=== PATIENT | male | born 1955 | race Caucasian/White ===

== ENCOUNTER 2017-07-25 16:07 | Emergency (ER) | payer OTHER ==
[2017-07-25 16:10] VITALS: BP 149/74; PULSE 79; RESP 22; TEMP 97.8; O2SAT 100
[2017-07-25 16:44] VITALS: BP 132/79; PULSE 68; RESP 16; O2SAT 96
--- NOTE | 2017-07-25 16:59 | PD ---
HPI Chief Complaint: Edema Time Seen by Provider: 16:41 Travel History International Travel<30 days: No Contact w/Intl Traveler<30days: No Traveled to known affect area: No History of Present Illness HPI 62-year-old male presents to the emergency department for evaluation of bilateral lower extremity edema that has been intermittent over the past 2 weeks. On , he states his edema was much worse and he called his primary care physician who told him to go to the ER. However, the edema had resolved so he did not come. Patient states that the edema is usually worse on the right. At this time, the edema is resolved. He does report shortness of breath, worse with exertion. He denies any chest pain at this time. No fevers or chills. He states he will occasionally get abdominal pain, but has not at this time. Patient reports history of chronic back pain, bipolar disorder. No exacerbating or alleviating factors. Moderate severity. PFSH Past Medical History Cardiovascular Problems: Yes Social History Alcohol Use: Yes (Rarely) Tobacco Use: Yes Substance Use: No Allergies-Medications (Allergen,Severity, Reaction): Coded Allergies: No Known Drug Allergies (Verified Allergy, Unknown, 07/25/17) Reported Meds & Prescriptions Reported Meds & Active Scripts Active Reported Testosterone Cypionate Inj (Testosterone Cypionate) 200 Mg/Ml Inj 200 Mg IM Q14D Motrin Ib (Ibuprofen) 200 Mg Tablet 800 Mg PO BID Valium (Diazepam) 5 Mg Tab 5 Mg PO BID PRN Valium (Diazepam) 10 Mg Tab 10 Mg PO HS PRN Duloxetine DR (Duloxetine HCl) 60 Mg Capdr 60 Mg PO DAILY Hydrochlorothiazide 25 Mg Tab 25 Mg PO DAILY Lisinopril 10 Mg Tab 10 Mg PO BID Suboxone Sublingual Film (Buprenorphine-Naloxone Sublingual Film) 8-2 Mg Film 1 Film SL TID Unique ID number required: Review of Systems Except as stated in HPI: all other systems reviewed are Neg Physical Exam Narrative GENERAL: Well-nourished, well-developed male patient, afebrile. SKIN: Focused skin assessment warm/dry. HEAD: Normocephalic. Atraumatic. EYES: No scleral icterus. No injection or drainage. NECK: Supple, trachea midline. No JVD or lymphadenopathy. CARDIOVASCULAR: Regular rate and rhythm without murmurs, gallops, or rubs. Right pedal pulse 2+. Left pedal pulses 1+. RESPIRATORY: Breath sounds equal bilaterally. No accessory muscle use. Lung sounds are clear to auscultation. GASTROINTESTINAL: Abdomen soft, non-tender, nondistended. No abdominal pain to palpation. No guarding. MUSCULOSKELETAL: No cyanosis, or edema. No calf tenderness to palpation. Negative Homans sign bilaterally. BACK: Nontender without obvious deformity. No CVA tenderness. Data Data Last Documented VS Vital Signs Date Time Temp Pulse Resp B/P (MAP) Pulse Ox O2 Delivery O2 Flow Rate FiO2 07/25/17 20:23 62 16 125/76 (92) 96 Nasal Cannula 2.00 07/25/17 16:10 97.8 Orders Orders Electrocardiogram (07/25/17 16:53) B-Type Natriuretic Peptide (07/25/17 16:53) Ckmb (Isoenzyme) Profile (07/25/17 16:53) Complete Blood Count With Diff (07/25/17 16:53) Magnesium (Mg) (07/25/17 16:53) Troponin I (07/25/17 16:53) Chest, Single Ap (07/25/17 16:53) Ecg Monitoring (07/25/17 16:53) Bilateral Bp Monitoring (07/25/17 16:53) Iv Access Insert/Monitor (07/25/17 16:53) Oximetry (07/25/17 16:53) Oxygen Administration (07/25/17 16:53) Sodium Chloride 0.9% Flush (Ns Flush) (07/25/17 17:00) Comprehensive Metabolic Panel (07/25/17 16:54) Lipase (07/25/17 16:54) Us Leg Venous Doppler Bilat (07/25/17 ) Labs Laboratory Tests Test 07/25/17 17:36 White Blood Count 6.6 TH/MM3 Red Blood Count 5.03 MIL/MM3 Hemoglobin 15.1 GM/DL Hematocrit 44.7 % Mean Corpuscular Volume 88.9 FL Mean Corpuscular Hemoglobin 30.0 PG Mean Corpuscular Hemoglobin Concent 33.8 % Red Cell Distribution Width 13.6 % Platelet Count 249 TH/MM3 Mean Platelet Volume 7.8 FL Neutrophils (%) (Auto) 44.6 % Lymphocytes (%) (Auto) 42.0 % Monocytes (%) (Auto) 9.8 % Eosinophils (%) (Auto) 2.5 % Basophils (%) (Auto) 1.1 % Neutrophils # (Auto) 2.9 TH/MM3 Lymphocytes # (Auto) 2.8 TH/MM3 Monocytes # (Auto) 0.6 TH/MM3 Eosinophils # (Auto) 0.2 TH/MM3 Basophils # (Auto) 0.1 TH/MM3 CBC Comment DIFF FINAL Differential Comment Blood Urea Nitrogen 14 MG/DL Creatinine 1.25 MG/DL Random Glucose 89 MG/DL Total Protein 6.7 GM/DL Albumin 3.5 GM/DL Calcium Level 8.6 MG/DL Alkaline Phosphatase 49 U/L Aspartate Amino Transf (AST/SGOT) 18 U/L Alanine Aminotransferase (ALT/SGPT) 15 U/L Total Bilirubin 0.7 MG/DL Sodium Level 136 MEQ/L Potassium Level 3.4 MEQ/L Chloride Level 98 MEQ/L Carbon Dioxide Level 30.1 MEQ/L Anion Gap 8 MEQ/L Estimat Glomerular Filtration Rate 59 ML/MIN Magnesium Level 2.2 MG/DL Total Creatine Kinase 61 U/L Troponin I LESS THAN 0.02 NG/ML B-Type Natriuretic Peptide 19 PG/ML Lipase 91 U/L [facility] Medical Decision Making Medical Screen Exam Complete: Yes Emergency Medical Condition: Yes Medical Record Reviewed: Yes Interpretation(s) Last Impressions Chest X-Ray 07/25/17 1653 Signed Impressions: Service Date/Time: Tuesday, July 25, 2017 17:17 - CONCLUSION: Compensated cardiomegaly otherwise negative Ned Law MD FACR Lower Extremity Ultrasound 07/25/17 0000 Signed Impressions: Service Date/Time: Tuesday, July 25, 2017 19:07 - CONCLUSION: Normal examination. Harley Pederson MD Differential Diagnosis Idiopathic edema versus CHF versus ACS versus electrolyte abnormality versus pneumonia versus URI Narrative Course 62-year-old male presents to the emergency department for evaluation of bilateral lower extremity edema and shortness of breath. There is no edema on exam. Negative Homans sign and no tenderness to bilateral calves. Lung sounds are clear to auscultation. EKG, CBC, CMP, lipase, CK, troponin, magnesium, chest x-ray, venous Doppler ultrasound of bilateral lower extremity are ordered and pending. EKG shows sinus rhythm, heart rate 63, no acute ST changes. CBC shows no acute abnormality. CMP shows no acute abnormality. Lipase is 91. CK is 61. Troponin is is less than 0.02. Magnesium is 2.2. Chest x-ray shows compensated cardiomegaly otherwise negative venous ultrasound is negative. On reexamination, patient states he is feeling good and would like to go home. I discussed results with the patient, his and daughter at bedside. Patient is instructed to follow-up with his primary care physician he is return for any acute worsening of symptoms. The patient was discharged in stable condition with instructions, including return instructions and follow up instructions. Diagnosis Primary Impression: Edema of both legs Referrals: Primary Care Physician call for appointment Patient Instructions: General Instructions, Leg Edema (ED) Additional Instructions: Elevate. Compression stockings. Follow-up with a primary care physician. Return to the emergency department for any acute worsening of symptoms. Med/Other Pt SpecificInfo: No Change to Meds Disposition: 01 DISCHARGE HOME Condition: Stable Kailey Silva July 25, 2017 16:58
[2017-07-25] MEDS ORDERED: SODIUM CHLORIDE 0.9% FLUSH 10 ML FLUSH IVF PRN (17:00)
[2017-07-25] MEDS ORDERED: DULO1CAP3 PO (17:17)
[2017-07-25] MEDS ORDERED: DIAZ5 PO (17:17)
[2017-07-25] MEDS ORDERED: IBUP-1129 PO (17:17)
[2017-07-25] MEDS ORDERED: SUBO8MIS SL (17:17)
[2017-07-25] MEDS ORDERED: HYDR25TA5 PO (17:17)
[2017-07-25] MEDS ORDERED: LISI10TA3 PO (17:17)
[2017-07-25] MEDS ORDERED: DIAZ10 PO (17:17)
[2017-07-25] MEDS ORDERED: TEST200I12 IM (17:39)
--- NOTE | 2017-07-25 17:49 | RADRPT ---
EXAM DATE/TIME: 07/25/2017 17:17 [facility] COMPARISON: No previous studies available for comparison. INDICATIONS : Short of breath. MEDICAL HISTORY : None. SURGICAL HISTORY : None. ENCOUNTER: Initial ACUITY: 1 day PAIN SCORE: 0/10 LOCATION: Bilateral chest FINDINGS: The lungs are clear. The heart is minimally enlarged. The pulmonary vascularity is normal. There is n o evidence for infiltrate or failure. The portion of the bony skeleton visualized is unremarkable. CONCLUSION: Compensated cardiomegaly otherwise negative Ned Law MD FACR on July 25, 2017 at 17:46 Board Certified Radiologist. This report was verified electronically.
[2017-07-25 17:51] VITALS: BP 128/78; PULSE 65; RESP 18; O2SAT 95
[2017-07-25 18:10] VITALS: O2SAT 96
[2017-07-25 18:32] LABS: AUTOMATED NEUTROPHIL # 2.9 TH/MM3 (1.8-7.7); BASOPHIL # 0.1 TH/MM3 (0-0.2); BASOPHIL % 1.1 % (0.0-2.0); EOSINOPHIL # 0.2 TH/MM3 (0-0.4); EOSINOPHIL % 2.5 % (0.0-4.0); HEMATOCRIT 44.7 % (39.0-51.0); HEMOGLOBIN 15.1 GM/DL (13.0-17.0); LYMPHOCYTE # 2.8 TH/MM3 (1.0-4.8); MEAN CELL VOLUME 88.9 FL (80.0-100.0); MEAN CORPUSCULAR HGB CONC 33.8 % (32.0-36.0); MEAN PLATELET VOLUME 7.8 FL (7.0-11.0); MONO % 9.8 % (0.0-8.0); MONOCYTE # 0.6 TH/MM3 (0-0.9); NEUT % 44.6 % (16.0-70.0); PLATELET COUNT 249 TH/MM3 (150-450); RED BLOOD COUNT 5.03 MIL/MM3 (4.50-5.90); RED CELL DISTRIBUTION WIDTH 13.6 % (11.6-17.2); WHITE BLOOD COUNT 6.6 TH/MM3 (4.0-11.0)
[2017-07-25 19:04] LABS: MAGNESIUM 2.2 MG/DL (1.5-2.5); TROPONIN I LESS THAN 0.02 NG/ML (0.02-0.05)
[2017-07-25 19:13] VITALS: BP 125/77; PULSE 72; RESP 16; O2SAT 97
[2017-07-25 19:56] LABS: CREATININE 1.25 MG/DL (0.60-1.30); GLOMERULAR FILTRATION RATE 59 ML/MIN (>89)
[2017-07-25 19:57] LABS: ALBUMIN 3.5 GM/DL (3.4-5.0); ALT (GPT) 15 U/L (12-78); AST (GOT) 18 U/L (15-37); BICARBONATE 30.1 MEQ/L (21.0-32.0); CALCIUM 8.6 MG/DL (8.5-10.1); CHLORIDE 98 MEQ/L (98-107); GLUCOSE,RANDOM 89 MG/DL (74-106); SODIUM (NA) 136 MEQ/L (136-145)
[2017-07-25 20:01] LABS: ALKALINE PHOSPHATASE 49 U/L (45-117); BLOOD UREA NITROGEN 14 MG/DL (7-18); TOTAL BILIRUBIN ADULT 0.7 MG/DL (0.2-1.0); TOTAL PROTEIN 6.7 GM/DL (6.4-8.2)
--- NOTE | 2017-07-25 20:05 | RADRPT ---
EXAM DATE/TIME: 07/25/2017 19:07 [facility] COMPARISON: No previous studies available for comparison. INDICATIONS : Bilateral leg swelling. MEDICAL HISTORY : CHF. SURGICAL HISTORY : Carotid stent.Appendectomy. ENCOUNTER: Initial ACUITY: 4 - 6 days PAIN SCORE: 5/10 LOCATION: Bilateral legs. TECHNIQUE: Venous ultrasound of the left and right leg was performed from the inguinal ligament to the proximal calf. Real-time, color Doppler and spectral tracing, compression and augmentation techniques were us ed. FINDINGS: RIGHT LEG: There is normal compressibility of the deep venous system from the inguinal region to the proximal ca lf. No echogenic clot is seen in the lumen of the common femoral, femoral, popliteal, and posterior tibial veins. There is a normal response of the venous system to proximal and distal augmentation an d respiration. LEFT LEG: There is normal compressibility of the deep venous system from the inguinal region to the proximal ca lf. No echogenic clot is seen in the lumen of the common femoral, femoral, popliteal, and posterior tibial veins. There is a normal response of the venous system to proximal and distal augmentation an d respiration. CONCLUSION: Normal examination. Harley Pederson MD on July 25, 2017 at 20:02 Board Certified Radiologist. This report was verified electronically.
[2017-07-25 20:23] VITALS: BP 125/76; PULSE 62; RESP 16; O2SAT 96
--- NOTE | 2017-07-26 09:32 | EKG ---
Date Performed: 07/25/2017 Time Performed: 18:09:20 PTAGE: 62 years EKG: Sinus rhythm NORMAL ECG NO PREVIOUS TRACING DOCTOR: Mila Portillo Interpretating Date/Time 07/26/2017 09:31:51
== END 2017-07-25 21:27 | disposition home or self-care (01) ==
LOC: NEPC 16:07
DX: R60.0 Localized edema (principal); Z72.0 Tobacco use; Z79.899 Other long term (current) drug therapy
CPT/HCPCS: 71045; 80053; 82550; 83690; 83735; 83880; 84484; 85025; 93005; 93970

== ENCOUNTER 2017-10-27 11:51 | Inpatient (IN) ==
--- NOTE | 2017-10-27 13:20 | ED ---
HPI General Chief Complaint: Recheck/Abnormal Lab/Rx Stated Complaint: Medical Complaint Time Seen by Provider: 10/27/17 12:14 Source: patient Mode of arrival: ambulatory Limitations: no limitations History of Present Illness HPI narrative: 62-year-old male with PMH of HTN, chronic back pain, current smoker presents the ED for evaluation of 1 month history of right lower extremity edema and pain. Pain is rated 4/10, aching, worsened by long periods of standing, no alleviating factors reported. The patient denies associated chest pain, palpitations, shortness of breath. He states that he had an outpatient x-ray and ankle-brachial index which were both normal. He had outpatient ultrasound today that showed extensive DVT from the common femoral to the vessels below the knee. He denies recent period of immobilization, familial history of blood clots. He has been treating at home with elevation and compression socks. He also takes Suboxone for chronic back pain which he states has helped with this leg pain as well. He states that he had a complete cardiac workup with Dr. Rubin in the past year. He states that he has had a negative panendoscopy in the past year. Related Data Home Medications Medication Instructions Recorded Confirmed buprenorphine HCl 8 mg SUBLINGUAL TID 10/27/17 10/27/17 diazepam [Valium] 10 mg PO BID 10/27/17 10/27/17 duloxetine [Cymbalta] 120 mg PO DAILY 10/27/17 10/27/17 furosemide 20 mg PO DAILY 10/27/17 10/27/17 ibuprofen 800 mg PO BID 10/27/17 10/27/17 lisinopril 20 mg PO BID 10/27/17 10/27/17 nicotine 1 patch TRANSDERMAL DAILY 10/27/17 10/27/17 Allergies Allergy/AdvReac Type Severity Reaction Status Date / Time No Known Allergies Allergy Unverified 10/27/17 12:18 Review of Systems ROS: all other systems reviewed are negative [facility] Medical History Medical History Anxiety (Acute) Arthritis (Acute) Bipolar disorder (Acute) Depression (Acute) Hypertension (Acute) Spinal stenosis (Acute) Surgical History Surgical History History of appendectomy (Acute) History of umbilical hernia repair (Acute) Hx of cardiac cath (Acute) Family History Family History Other Adopted Social History Social History Substance History: No History of Abuse Smoking Status: Current every day smoker Tobacco Type: Cigarettes How Often Do You Have a Drink Containing Alcohol: Never Recent Travel in [facility] within the Last 8 Weeks: No Recent Out of Country Travel within the Last 8 Weeks: No Immunization History Tetanus Immunization: Unsure Hx Influenza Vaccine This Season: No Exam Narrative Exam Narrative: GENERAL: Well-developed, well-nourished white male no acute distress. SKIN: Focused skin assessment warm/dry. HEAD: Atraumatic. Normocephalic. EYES: Pupils equal and round. No scleral icterus. No injection or drainage. ENT: No nasal bleeding or discharge. Mucous membranes pink and moist. NECK: Trachea midline. No JVD. CARDIOVASCULAR: Regular rate and rhythm. No murmur appreciated. RESPIRATORY: No accessory muscle use. Clear to auscultation. Breath sounds equal bilaterally. GASTROINTESTINAL: Abdomen soft, non-tender, nondistended. Hepatic and splenic margins not palpable. MUSCULOSKELETAL: No obvious deformities. No clubbing. No cyanosis. FOCUSED RIGHT LOWER EXTREMITY EXAM: 2+ DP pulse. Positive Homans sign. Positive active popliteal tenderness. There is significant edema of the right lower extremity. Patient retains full, active, painless ROM of the extremity. Neurovascularly intact distally. NEUROLOGICAL: Awake and alert. No obvious cranial nerve deficits. Motor grossly within normal limits. Normal speech. PSYCHIATRIC: Appropriate mood and affect; insight and judgment normal. Course Initial Documented Vital Signs Temperature 98.1 F 10/27/17 11:57 Pulse Rate 75 10/27/17 11:57 Respiratory Rate 12 10/27/17 11:57 Blood Pressure 116/69 10/27/17 11:57 Pulse Oximetry 95 10/27/17 11:57 Last Documented Vital Signs Temperature 98.1 F 10/27/17 11:57 Pulse Rate 68 10/27/17 15:11 Respiratory Rate 16 10/27/17 15:11 Blood Pressure 115/69 10/27/17 15:11 Pulse Oximetry 98 10/27/17 15:11 Medical Decision Making ZARIA Attestation ZARIA supervised visit: Yes Attestation: I, Dr. Davis, have reviewed the advance practice practitioner's documentation and am in agreement, met with the patient face to face, made the diagnosis, and the medical decision making was done by me. *My assessment and Findings: Patient was found to have an acute DVT and then was taken to IR for further management. He has been admitted to the hospital for further evaluation and management of his DVT. MDM Narrative Medical decision making narrative: 62-year-old male with PMH of HTN, chronic back pain, current smoker presents the ED for evaluation of 1 month history of right lower extremity edema and pain. He had outpatient ultrasound today that showed extensive DVT from the common femoral to the vessels below the knee. He denies recent period of immobilization, familial history of blood clots. He has been treating at home with elevation and compression socks. He states that he had a complete cardiac workup with Dr. Rubin in the past year. He states that he has had a negative panendoscopy in the past year. Vitals reviewed. On exam there is edema, positive Homans sign and positive popliteal tenderness of the right lower extremity. Neurovascularly intact distally. I spoke with the interventional radiologist who thinks that the patient may be a good candidate for thrombolysis. Patient and his family are agreeable to this plan. I spoke with Dr. Santos who agrees to accept the patient to the medicine service. Please see IR and medicine notes for disposition. Medical Screen Exam Complete: Yes Emergency Medical Condition: Yes Differential Diagnosis Differential Diagnosis: Venous insufficiency versus dependent edema versus DVT versus other Medical Records Medical records reviewed: Yes I reviewed the patient's medical records. Patient had negative ultrasound of bilateral lower extremities in July. Lab Data Result diagrams: 10/27/17 12:30 10/27/17 12:30 Lab Results 10/27/17 10/27/17 10/27/17 Range/Units 12:30 12:30 12:30 WBC 6.2 (4.0-11.0) th/mm3 RBC 5.22 (4.50-5.90) mil/mm3 Hgb 15.3 (13.0-17.0) gm/dL Hct 45.0 (39.0-51.0) % MCV 86.2 (80.0-100.0) fL MCH 29.2 (27.0-34.0) pg MCHC 33.9 (32.0-36.0) % RDW 14.6 (11.6-17.2) % Plt Count 210 (150-450) th/mm3 MPV 8.1 (7.0-11.0) fL Neut % (Auto) 40.8 (16.0-70.0) % Lymph % (Auto) 42.2 (9.0-44.0) % [place] % (Auto) 12.5 H (0.0-8.0) % Eos % (Auto) 3.6 (0.0-4.0) % Baso % (Auto) 0.9 (0.0-2.0) % Neut # (Auto) 2.5 (1.8-7.7) th/mm3 Lymph # (Auto) 2.6 (1.0-4.8) th/mm3 [place] # (Auto) 0.8 (0.0-0.9) th/mm3 Eos # (Auto) 0.2 (0.0-0.4) th/mm3 Baso # (Auto) 0.1 (0.0-0.2) th/mm3 WBC Differential . Differential Comment Auto diff final PT 10.4 (9.8-11.6) sec INR 1.0 Ratio APTT 27.6 (24.3-30.1) sec Sodium 139 (136-145) meq/L Potassium 3.7 (3.5-5.1) meq/L Chloride 102 (98-107) meq/L Carbon Dioxide 30.1 (21.0-32.0) meq/L Anion Gap 7 (5-15) meq/L BUN 14 (7-18) mg/dL Creatinine 1.42 H (0.60-1.30) mg/dL Estimated GFR 51 L (>89) mL/min Random Glucose 90 (74-106) mg/dL Calcium 8.2 L (8.5-10.1) mg/dL Urine Color (Yellw/Straw) Urine Clarity (Clear) Urine pH (5.0-8.5) Ur Specific [place] (1.002-1.035) Urine Protein (Neg-Trace) mg/dL Urine Glucose (UA) (Negative) mg/dL Urine Ketones (Negative) mg/dL Urine Occult Blood (Negative) Urine Nitrate (Negative) Urine Bilirubin (Negative) Urine Urobilinogen (Less than 2) mg/dL Ur Leukocyte Esterase (Negative) Urine WBC (0-5) /hpf Ur Transition Epith Cell (None) /hpf Hyaline Casts (0-3) /lpf Micro UA Comment Urine Culture Comments 10/27/17 Range/Units 12:55 WBC (4.0-11.0) th/mm3 RBC (4.50-5.90) mil/mm3 Hgb (13.0-17.0) gm/dL Hct (39.0-51.0) % MCV (80.0-100.0) fL MCH (27.0-34.0) pg MCHC (32.0-36.0) % RDW (11.6-17.2) % Plt Count (150-450) th/mm3 MPV (7.0-11.0) fL Neut % (Auto) (16.0-70.0) % Lymph % (Auto) (9.0-44.0) % [place] % (Auto) (0.0-8.0) % Eos % (Auto) (0.0-4.0) % Baso % (Auto) (0.0-2.0) % Neut # (Auto) (1.8-7.7) th/mm3 Lymph # (Auto) (1.0-4.8) th/mm3 [place] # (Auto) (0.0-0.9) th/mm3 Eos # (Auto) (0.0-0.4) th/mm3 Baso # (Auto) (0.0-0.2) th/mm3 WBC Differential Differential Comment PT (9.8-11.6) sec INR Ratio APTT (24.3-30.1) sec Sodium (136-145) meq/L Potassium (3.5-5.1) meq/L Chloride (98-107) meq/L Carbon Dioxide (21.0-32.0) meq/L Anion Gap (5-15) meq/L BUN (7-18) mg/dL Creatinine (0.60-1.30) mg/dL Estimated GFR (>89) mL/min Random Glucose (74-106) mg/dL Calcium (8.5-10.1) mg/dL Urine Color Yellow (Yellw/Straw) Urine Clarity Clear (Clear) Urine pH 5.0 (5.0-8.5) Ur Specific [place] 1.008 (1.002-1.035) Urine Protein Negative (Neg-Trace) mg/dL Urine Glucose (UA) Negative (Negative) mg/dL Urine Ketones Negative (Negative) mg/dL Urine Occult Blood Negative (Negative) Urine Nitrate Negative (Negative) Urine Bilirubin Negative (Negative) Urine Urobilinogen Less than 2 (Less than 2) mg/dL Ur Leukocyte Esterase Negative (Negative) Urine WBC 1 (0-5) /hpf Ur Transition Epith Cell <1 (None) /hpf Hyaline Casts 3 (0-3) /lpf Micro UA Comment Culture not ind Urine Culture Comments Culture not ind Discharge Plan Discharge Disposition Patient Disposition: 30 Still Patient Discharge Details Diagnosis: Deep vein thrombosis (DVT) of femoral vein of right lower extremity Physicians Team ED Provider: Ama Davis ED Midlevel Provider: Ami Taylor Primary Care Provider: Alfredo Liao Attending Provider: Singh Santos Other Providers: [facility],Insurance Status ED Status: Left Department Discharge Information Discharge Date/Time: 10/27/17 16:00
[2017-10-27 13:59] LABS: Baso # (Auto) 0.1 th/mm3 (0.0-0.2); Baso % (Auto) 0.9 % (0.0-2.0); Eos # (Auto) 0.2 th/mm3 (0.0-0.4); Eos % (Auto) 3.6 % (0.0-4.0); Hemoglobin 15.3 gm/dL (13.0-17.0); Lymph # (Auto) 2.6 th/mm3 (1.0-4.8); Lymph % (Auto) 42.2 % (9.0-44.0); Mean Corpuscular HGB Conc 33.9 % (32.0-36.0); Mean Corpuscular Hemoglobin 29.2 pg (27.0-34.0); Mean Corpuscular Volume 86.2 fL (80.0-100.0); Mean Platelet Volume 8.1 fL (7.0-11.0); Mono # (Auto) 0.8 th/mm3 (0.0-0.9); Mono % (Auto) 12.5 % (0.0-8.0); Neut # (Auto) 2.5 th/mm3 (1.8-7.7); Neut % (Auto) 40.8 % (16.0-70.0); Platelet Count 210 th/mm3 (150-450); Red Blood Count 5.22 mil/mm3 (4.50-5.90); Red Cell Distribution Width 14.6 % (11.6-17.2); White Blood Count 6.2 th/mm3 (4.0-11.0)
[2017-10-27 14:10] LABS: Activated Partial Thrombo Time 27.6 sec (24.3-30.1); Prothrombin Time 10.4 sec (9.8-11.6)
[2017-10-27 14:25] LABS: Calcium 8.2 mg/dL (8.5-10.1); Carbon Dioxide 30.1 meq/L (21.0-32.0); Potassium 3.7 meq/L (3.5-5.1)
[2017-10-27 14:41] LABS: Bilirubin,Urine Negative (Negative); Clarity,Urine Clear (Clear); Color,Urine Yellow (Yellw/Straw); Glucose,Urine (UA) Negative (Negative); Hyaline Casts,Urine 3 /lpf (0-3); Leukocyte Esterase,Urine Negative (Negative); Nitrite,Urine Negative (Negative); Specific Gravity,Urine 1.008 (1.002-1.035); Transitional Epi Cells,Urine <1 /hpf
[2017-10-27] MEDS ORDERED: Bisacodyl 10 MG Supp RECTAL PRN (15:05)
[2017-10-27] MEDS ORDERED: fentaNYL Citrate Inj 250 MCG/5 ML Ampul ONE (15:54)
--- NOTE | 2017-10-27 16:48 | P.RAD ---
Post Procedure Progress Note - Procedure Information Procedure Date: 10/27/17 Supervising Radiologist: Cristi Day MD Estimated blood loss (mL): 0 Anesthesia: Conscious Sedation - Plan of Activity Patient to Unit: Nursing Unit Patient Condition: Good Additional Comments: No ililac or caval thrombus. Right CFV and prox SFV are patent. Chronic appearing SFV DVT with mature collateral in the mid thigh. No thrombolysis is indicated. See PACS Report for procedural detail/treatment.
[2017-10-27] MEDS ORDERED: Heparin 10,000 UNITS/10 ML Vial (for IV use) IV.PUSH STA (17:35)
--- NOTE | 2017-10-27 17:52 | P.HPIM ---
History of Present Illness Primary Care Physician: Alfredo Liao History of Present Illness: 62-year-old male with a history of hypertension, spinal stenosis who presents with a one-month history of progressively worsening right lower extremity swelling with constant dull pain in the right lower extremity. Outpatient ultrasound performed today shows reportedly extensive right lower extremity DVT. Patient denies any chest pain, shortness breath, nausea, vomiting, lightheadedness, dizziness, fevers, chills, diarrhea, constipation. Denies any bleeding. Inpatient Certification: I certify that the inpatient services were ordered in accordance with Medicare regulations governing the order. This includes certification that hospital inpatient services are reasonable and necessary and in the case of services not specified as inpatient-only under 42 CFR 419.22(n), that they are appropriately provided as inpatient services in accordance to with the 2-midnight benchmark under 43 CFR 412.3(e) Estimated Total Length of Stay (Days): 3 Plans for Post Hospital Care: Home Review of Systems All other systems reviewed negative except as stated in HPI PMFSH - History History Provided By: Patient, Family Member - Medical History Medical History: Medical History (Last Updated 10/27/17 @ 12:20 by Monalisa Carreon) Anxiety Arthritis Bipolar disorder Depression Hypertension Spinal stenosis - Surgical History Surgical History: Surgical History (Last Updated 10/27/17 @ 12:20 by Monalisa Crareon) History of appendectomy History of umbilical hernia repair Hx of cardiac cath - Family History Family History: Family History (Last Updated 10/27/17 @ 17:43 by Singh Santos MD) Other Adopted - Tobacco History Tobacco Use In Past 30 Days: Yes Smoking Status: Current every day smoker Tobacco Type: Cigarettes - Alcohol History How Often Do You Have a Drink Containing Alcohol: Never - Substance Use History Substance History: No History of Abuse - Travel History Recent Travel in the [place] Within the Last 8 Weeks: No Recent Travel Out of the Country Within the Last 8 Weeks: No - Immunization History Tetanus Immunization: Unsure Hx Influenza Vaccine This Season: No Medications and Allergies Active Medications: Active Medications Al Hydroxide/Mg Hydroxide (Milk Of Devora Liq) 30 ml PO Q12H PRN PRN Reason: Mild Constipation Bisacodyl (Dulcolax Supp) 10 mg RECTAL DAILY PRN PRN Reason: SEVERE CONSITIPATION Buprenorphine HCl (Sublingual) 8 mg SL TID KANDIS Diazepam (Valium) 10 mg PO BID KANDIS Duloxetine HCl (Cymbalta) 120 mg PO DAILY [facility] Heparin Sodium (Porcine) (Heparin Inj) 4,000 units IV.PUSH NOW STA Stop: 10/27/17 17:36 Sodium Chloride (Ns Inj) 1,000 mls @ 100 mls/hr IV.CONT .Q10H [facility] Heparin Sodium/Dextrose (Heparin/D5w 25,000 U/250 Ml) 25,000 unit in 250 mls @ 0 mls/hr IV.CONT TITRATE PRN; Protocol PRN Reason: Per Protocol Lactulose (Lactulose Liq) 30 ml PO DAILY PRN PRN Reason: SEVERE CONSITIPATION Pantoprazole Sodium (Protonix) 40 mg PO DAILY [facility] Sennosides (Senokot) 17.2 mg PO Q12H PRN PRN Reason: Moderate Constipation Allergies Allergy/AdvReac Type Severity Reaction Status Date / Time No Known Allergies Allergy Unverified 10/27/17 12:18 Home Medications Medication Instructions Recorded Confirmed Type buprenorphine HCl 8 mg SUBLINGUAL TID 10/27/17 10/27/17 History diazepam [Valium] 10 mg PO BID 10/27/17 10/27/17 History duloxetine [Cymbalta] 120 mg PO DAILY 10/27/17 10/27/17 History furosemide 20 mg PO DAILY 10/27/17 10/27/17 History ibuprofen 800 mg PO BID 10/27/17 10/27/17 History lisinopril 20 mg PO BID 10/27/17 10/27/17 History nicotine 1 patch TRANSDERMAL DAILY 10/27/17 10/27/17 History Exam Vital signs: Vital Signs 10/27/17 11:57 10/27/17 13:46 10/27/17 15:11 Temperature 98.1 F Pulse Rate 75 68 Respiratory Rate 12 16 Blood Pressure 116/69 115/69 Pulse Oximetry 95 98 98 Intake & Output 10/26/17 10/27/17 10/27/17 18:59 06:59 18:59 Weight 83.915 kg Results - Labs CBC & Chem 7: 10/27/17 12:30 10/27/17 12:30 Labs: Short CBC 10/27/17 Range/Units 12:30 WBC 6.2 (4.0-11.0) th/mm3 Hgb 15.3 (13.0-17.0) gm/dL Hct 45.0 (39.0-51.0) % Plt Count 210 (150-450) th/mm3 BMP 10/27/17 12:30 Sodium 139 Potassium 3.7 Chloride 102 Carbon Dioxide 30.1 BUN 14 Creatinine 1.42 H Calcium 8.2 L Urine 10/27/17 Range/Units 12:55 Urine Color Yellow (Yellw/Straw) Urine Clarity Clear (Clear) Urine pH 5.0 (5.0-8.5) Ur Specific [place] 1.008 (1.002-1.035) Urine Protein Negative (Neg-Trace) mg/dL Urine Glucose (UA) Negative (Negative) mg/dL Caprini VTE Risk Assessment Caprini VTE Risk Assessment: Moderate/High Risk (score >= 2) Caprini Risk Assessment Model: Point Value = 1 Point Value = 2 Point Value = 3 Point Value = 5 Age 41-60 Minor surgery BMI > 25 kg/m2 Swollen legs Varicose veins or History of unexplained or recurrent spontaneous Oral contraceptives or hormone replacement Sepsis (< 1 month) Serious lung disease, including pneumonia (< 1 month) Abnormal pulmonary function Acute myocardial infarction Congestive heart failure (< 1 month) History of inflammatory bowel disease Medical patient at bed rest Age 61-74 Arthroscopic surgery Major open surgery (> 45 min) Laparoscopic surgery (> 45 min) Malignancy Confined to bed (> 72 hours) Immobilizing plaster cast Central venous access Age >= 75 History of VTE Family history of VTE Factor V Leiden Prothrombin [id number] Lupus anticoagulant Anticardiolipin antibodies Elevated serum homocysteine Heparin-induced thrombocytopenia Other congenital or acquired thrombophilia Stroke (< 1 month) Elective arthroplasty Hip, pelvis, or leg fracture Acute spinal cord injury (< 1 month) Prophylaxis Regimen: Total Risk Factor Score Risk Level Prophylaxis Regimen 0-1 Low Early ambulation 2 Moderate Order ONE of the following: *Sequential Compression Device (SCD) *Heparin 5000 units SQ BID 3-4 Higher Order ONE of the following medications: *Heparin 5000 units SQ TID *Enoxaparin/Lovenox 40 mg SQ daily (WT < 150 kg, CrCl > 30 mL/min) *Enoxaparin/Lovenox 30 mg SQ daily (WT < 150 kg, CrCl > 10-29 mL/min) *Enoxaparin/Lovenox 30 mg SQ BID (WT < 150 kg, CrCl > 30 mL/min) AND/OR *Sequential Compression Device (SCD) 5 or more Highest Order ONE of the following medications: *Heparin 5000 units SQ TID (Preferred with Epidurals) *Enoxaparin/Lovenox 40 mg SQ daily (WT < 150 kg, CrCl > 30 mL/min) *Enoxaparin/Lovenox 30 mg SQ daily (WT < 150 kg, CrCl > 10-29 mL/min) *Enoxaparin/Lovenox 30 mg SQ BID (WT < 150 kg, CrCl > 30 mL/min) AND *Sequential Compression Device (SCD) Assessment and Plan - Plan //Right lower extremity DVT. Per report with extensive Patient went for IR thrombolysis, however DVT is not extending up to the right iliac. No intervention necessary = Patient is hemodynamically stable, however has acute kidney injury. = Due to chronic use of ibuprofen, will place on PPI prophylaxis. Discontinue ibuprofen. We will place on heparin drip overnight. Hopefully can go on warfarin versus novel anticoagulant tomorrow. //Impaired kidney function. Creatinine 1.42 from baseline of 1.25. Likely secondary to recent diuretics. Hold diuretics. Place on IV fluids. Hold lisinopril. //Chronic back pain, spinal stenosis. Noted with some baseline right lower extremity weakness. continue buprenorphine 3 times daily //Hypertension. Blood pressure acceptable. Hold lisinopril due to acute kidney injury. Continue to monitor. //Chronic anxiety, depression. Continue home medications. Discussed Condition With: Patient, nurse, ED physician, patient's , patient's daughter.
[2017-10-27] MEDS ORDERED: Heparin Drip 25,000 UNIT/250 ML BAG IV.CONT PRN (18:00)
[2017-10-27 20:07] LABS: Activated Partial Thrombo Time 26.2 sec (24.3-30.1); Prothrombin Time 10.5 sec (9.8-11.6)
[2017-10-27 20:09] LABS: Hematocrit 47.4 % (39.0-51.0); Hemoglobin 15.5 gm/dL (13.0-17.0); Mean Corpuscular HGB Conc 32.7 % (32.0-36.0); Mean Corpuscular Hemoglobin 28.6 pg (27.0-34.0); Mean Corpuscular Volume 87.6 fL (80.0-100.0); Mean Platelet Volume 8.1 fL (7.0-11.0); Platelet Count 211 th/mm3 (150-450); Red Blood Count 5.41 mil/mm3 (4.50-5.90); Red Cell Distribution Width 15.1 % (11.6-17.2); White Blood Count 5.6 th/mm3 (4.0-11.0)
[2017-10-27] MEDS: Sod Chloride 0.9% Inj 1,000 ML IV.CONT SCH (20:10)
[2017-10-27] MEDS ORDERED: Lisinopril 20 MG Tablet PO SCH (21:00)
--- NOTE | 2017-10-27 23:15 | MB ---
cc: Stan Rubin DO DATE: 10/27/2017 REASON FOR CONSULTATION: DVT. HISTORY OF PRESENT ILLNESS: Carlitos Serna is a pleasant 62-year-old male, whom I see in the office and was at an outpatient facility where he had imaging of his lower extremity due to swelling, was found to have extensive DVT. I was called by the imaging facility and given the report. His daughter works as a nurse at my hospital and so I discussed with her. The facility was asking to send him to [facility] but between the patient and his daughter, they wanted him to come to [place] and so he was brought into the emergency room. He states that the swelling has been going on for some time. He did have a negative ultrasound a few months ago to evaluate it. He is wearing compression socks and attempting to keep his legs elevated. His right leg was getting worse than his left leg. He had repeat imaging today. He does have some mild pain throughout the leg due to the overall swelling, but no limb ischemia concerns. It does not appear that he has had any trauma to the leg in the past few months. He is extremely active and has had no episodes of nonmobility that he can think of. Per him and his , he had a colonoscopy within a recent timeframe for screening. PAST MEDICAL HISTORY: 1. Hypertension. 2. Chronic back pain. 3. Tobacco abuse. 4. Arthritis. 5. Bipolar. 6. Depression. 7. Spinal stenosis. PAST SURGICAL HISTORY: 1. Appendectomy. 2. Umbilical hernia repair. 3. Cardiac catheterization. ALLERGIES: NO KNOWN DRUG ALLERGIES. MEDICATIONS: 1. Buprenorphine 8 mg sublingual t.i.d. 2. Valium 10 mg b.i.d. 3. Cymbalta. 4. Iron 20 mg daily. 5. Lasix 20 mg daily. 6. Ibuprofen 800 mg b.i.d. 7. Lisinopril 20 mg b.i.d. 8. Nicotine transdermal daily. FAMILY HISTORY: Denies premature coronary artery disease or sudden cardiac within the family. SOCIAL HISTORY: The patient admits to smoking a pack of cigarettes a day. Denies alcohol or drug abuse. REVIEW OF SYSTEMS: Fourteen systems were reviewed including osteopathic, pertinent positives and negatives above, otherwise negative. PHYSICAL EXAMINATION: VITAL SIGNS: Temperature 98.1, heart rate 75, blood pressure 116/69, respirations 12, pulse oximetry 95% on room air. GENERAL: The patient appears well, no acute distress. Alert, awake and oriented x3. HEENT: Extraocular muscles intact. Mucous membranes moist. NECK: Supple. No JVD at 45 degrees. No carotid bruits heard bilaterally. Carotid upstroke is brisk in nature. HEART: Regular rate and rhythm. Positive first and second heart sounds without any murmurs, gallops or rubs. LUNGS: Clear to auscultation bilaterally. No wheezes, rales or rhonchi. ABDOMEN: Soft, nontender, nondistended. No organomegaly noted. EXTREMITIES: Show trace edema of the left lower extremity and 2+ edema of the right lower extremity with mild erythema. Distal pulses on both legs are intact and palpable. NEUROLOGIC: No focal deficits. SKIN: Warm, dry and intact. OSTEOPATHIC: No kyphosis, lordosis, or paraspinal tender points. OUTPATIENT IMAGING: Ultrasound (10/27/2017) shows extensive DVT of the right lower extremity from the right common femoral down through the popliteal. IMPRESSION: 1. Extensive deep venous thrombosis of the right lower extremity. 2. Hypertension. 3. Chronic back pain. 4. Tobacco abuse. RECOMMENDATIONS: 1. Mr. Serna presented with extensive deep venous thrombosis and will be placed on a heparin drip. 2. He should most likely be started on some type of NOAC therapy with a consideration for Eliquis versus Xarelto. 3. I discussed the case with interventional radiology for consideration of mechanical thrombectomy versus direct thrombolytics but at this time we will hold off. 4. He will be watched overnight and has been started on anticoagulation, most likely can go home tomorrow. 5. Consideration for a hematology evaluation, inpatient versus outpatient, due to unprovoked extensive DVT. Thank you for allowing me to see Calritos Serna. If there are any questions, please do not hesitate to call. Stan Rubin DO VGP/sj , 06:47 PM , 07:01 PM
[2017-10-28 02:58] LABS: Hematocrit 46.1 % (39.0-51.0); Hemoglobin 15.1 gm/dL (13.0-17.0); Mean Corpuscular HGB Conc 32.8 % (32.0-36.0); Mean Corpuscular Hemoglobin 28.8 pg (27.0-34.0); Mean Corpuscular Volume 87.7 fL (80.0-100.0); Mean Platelet Volume 7.9 fL (7.0-11.0); Platelet Count 201 th/mm3 (150-450); Red Blood Count 5.26 mil/mm3 (4.50-5.90); Red Cell Distribution Width 15.1 % (11.6-17.2); White Blood Count 5.3 th/mm3 (4.0-11.0)
[2017-10-28] MEDS: Sod Chloride 0.9% Inj 1,000 ML IV.CONT SCH ×3 (03:18→11:59)
[2017-10-28 06:04] LABS: Baso # (Auto) 0.1 th/mm3 (0.0-0.2); Eos # (Auto) 0.2 th/mm3 (0.0-0.4); Eos % (Auto) 3.2 % (0.0-4.0); Hematocrit 44.2 % (39.0-51.0); Lymph # (Auto) 2.9 th/mm3 (1.0-4.8); Lymph % (Auto) 41.3 % (9.0-44.0); Mean Corpuscular HGB Conc 33.9 % (32.0-36.0); Mean Corpuscular Hemoglobin 29.1 pg (27.0-34.0); Mean Corpuscular Volume 85.9 fL (80.0-100.0); Mean Platelet Volume 8.1 fL (7.0-11.0); Mono # (Auto) 0.8 th/mm3 (0.0-0.9); Mono % (Auto) 10.9 % (0.0-8.0); Neut # (Auto) 3.1 th/mm3 (1.8-7.7); Neut % (Auto) 43.6 % (16.0-70.0); Platelet Count 203 th/mm3 (150-450); Red Blood Count 5.15 mil/mm3 (4.50-5.90); Red Cell Distribution Width 14.8 % (11.6-17.2)
[2017-10-28 06:27] LABS: Alanine Aminotransferase 11 U/L (12-78); Albumin 2.7 g/dL (3.4-5.0); Anion Gap 8 meq/L (5-15); Aspartate Aminotransferase 10 U/L (15-37); Blood Urea Nitrogen 12 mg/dL (7-18); Calcium 7.9 mg/dL (8.5-10.1); Carbon Dioxide 28.4 meq/L (21.0-32.0); Chloride 107 meq/L (98-107); Glomerular Filtration Rate 66 mL/min (>89); Glucose,Random 82 mg/dL (74-106); Potassium 3.6 meq/L (3.5-5.1); Sodium 143 meq/L (136-145)
[2017-10-28 06:30] LABS: Alkaline Phosphatase 37 U/L (45-117); Total Protein 5.2 g/dL (6.4-8.2)
--- NOTE | 2017-10-28 08:31 | P.PNCA ---
Subjective Interval history: No angina, no SOB Physical Exam Vital signs: Vital Signs 10/27/17 11:57 10/27/17 13:46 10/27/17 15:11 Temperature 98.1 F Pulse Rate 75 68 Respiratory Rate 12 16 Blood Pressure 116/69 115/69 Pulse Oximetry 95 98 98 10/27/17 19:00 10/27/17 19:20 10/27/17 20:00 Temperature 98.5 F 98.5 F Pulse Rate 74 70 72 Respiratory Rate 16 18 Blood Pressure 142/82 H 123/73 Pulse Oximetry 95 95 10/27/17 21:00 10/27/17 22:00 10/27/17 23:00 Temperature Pulse Rate 68 62 69 Respiratory Rate Blood Pressure Pulse Oximetry 10/28/17 00:00 10/28/17 01:00 10/28/17 02:00 Temperature 97.4 F L Pulse Rate 60 58 L 76 Respiratory Rate 18 Blood Pressure 111/62 Pulse Oximetry 95 10/28/17 03:00 10/28/17 04:00 10/28/17 05:00 Temperature 97.7 F Pulse Rate 65 63 64 Respiratory Rate 18 Blood Pressure 110/73 Pulse Oximetry 99 10/28/17 06:00 Temperature Pulse Rate 72 Respiratory Rate Blood Pressure Pulse Oximetry Intake & Output 10/27/17 10/28/17 10/28/17 18:59 06:59 18:59 Intake Total 1240 / 1240 Output Total 400 / 400 Balance 840 / 840 Weight 83.915 kg 84.5 kg Intake: IV 1000 / 1000 NS Inj 1,000 ML @ 100 mls/hr IV 1000 / 1000 .CONT .Q10H [facility] Rx[id number] Oral 240 / 240 Output: Urine 400 / 400 Narrative: Alert in NAD Chest CTA CV S1S2 RRR Abd soft Ext: right calf swelling, warm - right thigh sl. larger than left Reduced left DP pulse Assessment and Plan - Assessment (1) Deep vein thrombosis (DVT) of femoral vein of right lower extremity Code(s): I82.411 - Acute embolism and thrombosis of right femoral vein Status : Acute Plan: Start Eliquis 10mg bid - DC hepain, home tomorrow (1) Deep vein thrombosis (DVT) of femoral vein of right lower extremity Qualifiers: Chronicity: unspecified Qualified Code(s): I82.411 - Acute embolism and thrombosis of right femoral vein
--- NOTE | 2017-10-28 08:59 | P.PNIM ---
Subjective Interval history: Patient says he is feeling all right. Denies any chest pain or shortness of breath. Denies nausea vomiting. Says he feels like he would like to go home. Physical Exam Vital signs: Vital Signs 10/27/17 11:57 10/27/17 13:46 10/27/17 15:11 Temperature 98.1 F Pulse Rate 75 68 Respiratory Rate 12 16 Blood Pressure 116/69 115/69 Pulse Oximetry 95 98 98 10/27/17 19:00 10/27/17 19:20 10/27/17 20:00 Temperature 98.5 F 98.5 F Pulse Rate 74 70 72 Respiratory Rate 16 18 Blood Pressure 142/82 H 123/73 Pulse Oximetry 95 95 10/27/17 21:00 10/27/17 22:00 10/27/17 23:00 Temperature Pulse Rate 68 62 69 Respiratory Rate Blood Pressure Pulse Oximetry 10/28/17 00:00 10/28/17 01:00 10/28/17 02:00 Temperature 97.4 F L Pulse Rate 60 58 L 76 Respiratory Rate 18 Blood Pressure 111/62 Pulse Oximetry 95 10/28/17 03:00 10/28/17 04:00 10/28/17 05:00 Temperature 97.7 F Pulse Rate 65 63 64 Respiratory Rate 18 Blood Pressure 110/73 Pulse Oximetry 99 10/28/17 06:00 Temperature Pulse Rate 72 Respiratory Rate Blood Pressure Pulse Oximetry Intake & Output 10/27/17 10/28/17 10/28/17 18:59 06:59 18:59 Intake Total 1240 / 1240 Output Total 400 / 400 Balance 840 / 840 Weight 83.915 kg 84.5 kg Intake: IV 1000 / 1000 NS Inj 1,000 ML @ 100 mls/hr IV 1000 / 1000 .CONT .Q10H [facility] Rx#:[id number] Oral 240 / 240 Output: Urine 400 / 400 Narrative: GENERAL: Patient sitting up in bed. Alert. Appears comfortable. SKIN: Warm and dry. HEAD: Normocephalic. EYES: No scleral icterus. No injection or drainage. NECK: Supple, trachea midline. No JVD. CARDIOVASCULAR: Regular rate and rhythm without murmurs, gallops, or rubs. RESPIRATORY: Breath sounds equal bilaterally. No accessory muscle use. GASTROINTESTINAL: Abdomen soft, non-tender, nondistended. MUSCULOSKELETAL: No cyanosis. Right legcalf with warmth, +1 edema, with a right thigh large left. BACK: Nontender without obvious deformity. No CVA tenderness. Results - Labs CBC & Chem 7: 10/28/17 05:20 10/28/17 05:20 Laboratory Results - last 24 hr 10/27/17 10/27/17 10/27/17 12:30 12:30 12:30 WBC 6.2 RBC 5.22 Hgb 15.3 Hct 45.0 MCV 86.2 MCH 29.2 MCHC 33.9 RDW 14.6 Plt Count 210 MPV 8.1 Neut % (Auto) 40.8 Lymph % (Auto) 42.2 [place] % (Auto) 12.5 H Eos % (Auto) 3.6 Baso % (Auto) 0.9 Neut # (Auto) 2.5 Lymph # (Auto) 2.6 [place] # (Auto) 0.8 Eos # (Auto) 0.2 Baso # (Auto) 0.1 WBC Differential . Differential Comment Auto diff final PT 10.4 INR 1.0 APTT 27.6 Sodium 139 Potassium 3.7 Chloride 102 Carbon Dioxide 30.1 Anion Gap 7 BUN 14 Creatinine 1.42 H Estimated GFR 51 L Random Glucose 90 Calcium 8.2 L Total Bilirubin AST ALT Alkaline Phosphatase Total Protein Albumin Urine Color Urine Clarity Urine pH Ur Specific [place] Urine Protein Urine Glucose (UA) Urine Ketones Urine Occult Blood Urine Nitrate Urine Bilirubin Urine Urobilinogen Ur Leukocyte Esterase Urine WBC Ur Transition Epith Cell Hyaline Casts Micro UA Comment Urine Culture Comments 10/27/17 10/27/17 10/27/17 12:55 18:30 18:30 WBC 5.6 RBC 5.41 Hgb 15.5 Hct 47.4 MCV 87.6 MCH 28.6 MCHC 32.7 RDW 15.1 Plt Count 211 MPV 8.1 Neut % (Auto) Lymph % (Auto) [place] % (Auto) Eos % (Auto) Baso % (Auto) Neut # (Auto) Lymph # (Auto) [place] # (Auto) Eos # (Auto) Baso # (Auto) WBC Differential Differential Comment PT 10.5 INR 1.0 APTT 26.2 Sodium Potassium Chloride Carbon Dioxide Anion Gap BUN Creatinine Estimated GFR Random Glucose Calcium Total Bilirubin AST ALT Alkaline Phosphatase Total Protein Albumin Urine Color Yellow Urine Clarity Clear Urine pH 5.0 Ur Specific [place] 1.008 Urine Protein Negative Urine Glucose (UA) Negative Urine Ketones Negative Urine Occult Blood Negative Urine Nitrate Negative Urine Bilirubin Negative Urine Urobilinogen Less than 2 Ur Leukocyte Esterase Negative Urine WBC 1 Ur Transition Epith Cell <1 Hyaline Casts 3 Micro UA Comment Culture not ind Urine Culture Comments Culture not ind 10/28/17 10/28/17 10/28/17 02:40 02:40 05:20 WBC 5.3 7.0 RBC 5.26 5.15 Hgb 15.1 15.0 Hct 46.1 44.2 MCV 87.7 85.9 MCH 28.8 29.1 MCHC 32.8 33.9 RDW 15.1 14.8 Plt Count 201 203 MPV 7.9 8.1 Neut % (Auto) 43.6 Lymph % (Auto) 41.3 [place] % (Auto) 10.9 H Eos % (Auto) 3.2 Baso % (Auto) 1.0 Neut # (Auto) 3.1 Lymph # (Auto) 2.9 [place] # (Auto) 0.8 Eos # (Auto) 0.2 Baso # (Auto) 0.1 WBC Differential . Differential Comment Auto diff final PT INR APTT 52.4 H D Sodium Potassium Chloride Carbon Dioxide Anion Gap BUN Creatinine Estimated GFR Random Glucose Calcium Total Bilirubin AST ALT Alkaline Phosphatase Total Protein Albumin Urine Color Urine Clarity Urine pH Ur Specific [place] Urine Protein Urine Glucose (UA) Urine Ketones Urine Occult Blood Urine Nitrate Urine Bilirubin Urine Urobilinogen Ur Leukocyte Esterase Urine WBC Ur Transition Epith Cell Hyaline Casts Micro UA Comment Urine Culture Comments 10/28/17 05:20 WBC RBC Hgb Hct MCV MCH MCHC RDW Plt Count MPV Neut % (Auto) Lymph % (Auto) [place] % (Auto) Eos % (Auto) Baso % (Auto) Neut # (Auto) Lymph # (Auto) [place] # (Auto) Eos # (Auto) Baso # (Auto) WBC Differential Differential Comment PT INR APTT Sodium 143 Potassium 3.6 Chloride 107 Carbon Dioxide 28.4 Anion Gap 8 BUN 12 Creatinine 1.12 Estimated GFR 66 L Random Glucose 82 Calcium 7.9 L Total Bilirubin 0.6 AST 10 L ALT 11 L Alkaline Phosphatase 37 L Total Protein 5.2 L Albumin 2.7 L Urine Color Urine Clarity Urine pH Ur Specific [place] Urine Protein Urine Glucose (UA) Urine Ketones Urine Occult Blood Urine Nitrate Urine Bilirubin Urine Urobilinogen Ur Leukocyte Esterase Urine WBC Ur Transition Epith Cell Hyaline Casts Micro UA Comment Urine Culture Comments Assessment and Plan - Plan //Right lower extremity unprovoked DVT. Per report with extensive Patient went for IR thrombolysis, however DVT is not extending up to the right iliac. No intervention necessary = Patient is hemodynamically stable, however has acute kidney injury. = Due to chronic use of ibuprofen, will place on PPI prophylaxis. Discontinue ibuprofen. We will place on heparin drip overnight. Hopefully can go on warfarin versus novel anticoagulant tomorrow. = Discussed with Dr. Melo today. Patient will be started on Eliquis. Plan to discharge home this evening is stable. Referral to hematology as outpatient. //Impaired kidney function. Creatinine 1.42 from baseline of 1.25. Likely secondary to recent diuretics. Hold diuretics. Place on IV fluids. Hold lisinopril. = Resolved to baseline. //Chronic back pain, spinal stenosis. Noted with some baseline right lower extremity weakness. continue buprenorphine 3 times daily //Hypertension. Blood pressure acceptable. Hold lisinopril due to acute kidney injury. Continue to monitor. //Tobacco abuse. Cessation advised. //Chronic anxiety, depression. Continue home medications. Discussed Condition With: Patient, nurse, Dr. Melo, daughter at bedside.
[2017-10-28] MEDS ORDERED: Duloxetine 60 MG DR Capsule PO SCH (09:00)
--- NOTE | 2017-10-28 09:28 | IR ---
EXAM DATE: 10/27/2017 6:36 PM EDT AGE/SEX: 62 years / Male INDICATIONS: Patient presents with right lower extremity edema and pain in need of venogram with pos sible interventions due to positive ultrasound study. CLINICAL DATA: This is the patient's initial encounter. Patient reports that signs and symptoms have been present for 1 day and indicates a pain score of 7/10. MEDICAL/SURGICAL HISTORY: . Anxiety, Arthritis, Bipolar disorder, Depression, Hypertension, Spi nal stenosis. . History of appendectomy, History of umbilical hernia repair, History of cardiac cath . COMPARISON: [facility], US LEG VENOUS DOPPLER, RIGHT, 10/27/2017. . FLUORO TIME (min): 5.36 IMAGE SERIES: 5 ACCESS SITE: Right internal jugular vein CONTRAST (cc): 40cc Visipaque (iodixanol) MEDICATION(S): 4 mg midazolam (Versed) IV 200 mcg fentanyl (Sublimaze) IV DEVICE(S): . . PROCEDURE : 1. Ultrasound-guided venipuncture. 2. Selective catheter placement to the distal right superficial femoral vein with right lower extremi ty venography, pelvic venography and cavogram. The risks, benefits and alternatives to the procedure were explained and verbal and written consent w as obtained. The site was prepped in sterile fashion. Full sterile technique was used, including ca p, mask, sterile gloves and gown and a large sterile sheet. Hand hygiene and 2% chlorhexidine and/or betadine/alcohol prep was utilized per protocol for cutaneous antisepsis. Sterile gel and sterile p robe cover were utilized for ultrasound guidance. The skin and subcutaneous tissues were infiltrated with local anesthetic solution. With ultrasound guidance the right internal jugular vein was punctured and a 6 Ukrainian sheath was plac ed. 4 Ukrainian flush catheter was advanced into the right common femoral vein and pelvic venogram and c avogram were performed. Catheter was then exchanged for a Boothe catheter which was advanced into the distal right superficial femoral vein with the assistance of a Glidewire and venography was performed . Wires and catheters were then removed. Sheath was removed and hemostasis obtained at the puncture s ite with manual compression. Patient tolerated the procedure well and was transferred to [facility] for observation. 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 The common femoral vein, right iliac veins and IVC are patent. CONCLUSION: 1. 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 2. Right common femoral vein, iliac veins and IVC are patent at this time. Therefore, planned venous thrombolysis was deferred. Electronically signed by: Cristi Day MD 10/28/2017 9:27 AM EDT
[2017-10-28 09:53] VITALS: RESP 16; O2SAT 94
--- NOTE | 2017-10-28 11:15 | XR ---
EXAM DATE: 10/28/2017 10:50 AM EDT AGE/SEX: 62 years / Male INDICATIONS: . Shortness of breath, CLINICAL DATA: This is the patient's initial encounter. Patient reports that signs and symptoms have been present for 1 day and indicates a pain score of 0/10. MEDICAL/SURGICAL HISTORY: Cardiovascular disease. None. COMPARISON: [facility] [place], CHEST SINGLE AP, 07/25/2017. . FINDINGS: PA and lateral views of the chest demonstrate the lungs to be symmetrically aerated without evidence of mass, infiltrate or effusion. Minimal basilar atelectasis or scarring. The cardiomediastinal conto urs are unremarkable except tortuous aorta. Osseous structures are intact. CONCLUSION: No acute findings. Minimal basilar atelectasis or scarring. Mildly tortuous aorta. Electronically signed by: Hua Pinto MD 10/28/2017 11:13 AM EDT
[2017-10-28 15:37] VITALS: BP 116/64; TEMP 98.2
[2017-10-28 18:09] VITALS: PULSE 70
== END 2017-10-28 18:32 | disposition home or self-care (01) ==
LOC: NEPE 11:51 → NEDA 15:05 → HCIS 18:42
PROVIDERS: ADMIT Family Medicine; ATTEND Family Medicine